=== PATIENT | female | born 1945 | race Caucasian/White ===

== ENCOUNTER 2016-12-12 08:57 | Inpatient (IN) | payer MEDICARE ==
[~2016-12-12] VITALS: Ht 162.6 cm; Wt 101.0 kg
[2016-12-12] VITALS (12 sets, daily range): BP systolic 119–164; BP diastolic 62–94; PULSE 74–92; RESP 13–20; O2SAT 93–96
--- NOTE | 2016-12-12 08:17 | PCM.HPANE ---
Patient Data Surgeon Admitting Provider: Attending Provider:Mehul Lazo DO Primary Care Physician:Abhay Estes DO Other Provider:Serge Alarcon Anesthesia Reason for Visit Left Knee Arthritis LEFT KNEE ARTHRITIS Ht/WT & BMI Height (Feet): 5 Height (Inches): 4 Weight (Kilograms): 99.7 Body Mass Index 37.00 Allergies Coded Allergies: codeine (Verified Allergy, Unknown, hyperactive, 12/02/16) toño (Verified Allergy, Unknown, vomiting, 12/02/16) Past Anesthesia History Anesthesia History: Denies:: Abnormal Airway, Anesthesia Reactions, Difficult Intubation, Fam Anesthesia Reaction (mother possible- tia during surgery) Diabetes History Hx Diabetes?: No MRSA MRSA: Yes (a few years ago,nasal ) Medications Hypertension Medication: No Home Meds Incl Beta Amos: No Reported Medications Cholecalciferol (Vitamin D3) (Vitamin D3)5,000 Unit Tab.rapdis5,000 Unit PO DAILY 12/02/16 Ascorbic Acid (Vitamin C)500 Mg Capsule.er500 Mg PO DAILY 12/02/16 Meclizine (Bonine)25 Mg Tab.chew25 Mg PO DAILY PRN For Nausea 12/02/16 Tramadol 50 Mg Oltnqo70 Mg PO HS PRN For Pain Ref 0 12/02/16 Promethazine 25 Mg Pybaix51.5-25 Mg PO Q6H PRN For Nausea Ref 0 12/02/16 Omeprazole 20 Mg Tablet.dr20 Mg PO DAILY 12/02/16 Naproxen Sodium 220 Mg Sncizru028 Mg PO BID PRN For Pain Ref 0 12/02/16 Misoprostol 100 Mcg Tjqndn267 Mcg PO BID take with diclofenac 12/02/16 Levothyroxine 88 Mcg Wethmt95 Mcg PO BID Ref 0 12/02/16 Diclofenac ER 75 Mg Zwxcqm92 Mg PO BID 12/02/16 Diazepam 5 Mg Tablet5 Mg PO TID PRN For Anxiety Ref 0 12/02/16 Cyclobenzaprine 10 Mg Wzdzqb52 Mg PO BID PRN Spasm 12/02/16 History History of ENT Problems?: No HEENT History: Denies:: Abnormal Airway Cataracts Difficult Intubation Dysphagia (usually has dry mouth, uses mints, gum frequently) Glaucoma Hearing Problem Sinus Problem TMJ Denture Type: None Teeth Condition: Within Normal Limits Hx of Heart Problems?: Yes Cardiovascular History: Denies:: AICD Abdominal Aortic Aneurism Atrial Fibrillation Cardiac Surgery Chest Pain Congestive Heart Failure Coronary Artery Disease Edema Heart Murmur Hypertension Irregular Heartbeat Pacemaker Peripheral Vascular Rheumatic Fever Thrombophlebitis Valvular Heart Disease Hx of Respiratory Problem?: No Respiratory History: Denies:: Asthma COPD Emphysema Oxygen Administration Pneumonia Tuberculosis Use of C-PAP Machine Hx Neurologic Problems?: No Neurological History: Denies:: Alzheimer's Disease Dementia Headaches Multiple Sclerosis Parkinson's Disease Seizures TIA Hx of GI Problems?: Yes Hx of Problems?: No Genitourinary History: Denies:: Kidney Stones Urinary Tract Infection Female Hx: Denies:: Currently (hysterectomy) Problems with Breasts? Skin History: Denies:: History Skin Disorders? Pressure Ulcers Hx Musculoskeletal Problems?: Yes Musculoskeletal History: Positive for:: Back Injury (chronic low back OA) Degenerative Joint Musculoskeletal Trauma (left knee current admission problem) Osteoarthritis (ribs, back, shoulder) Denies:: Fibromyalgia Joint Replacement Myasthenia Gravis Systemic Lupus Hx of Psycho/Social Problems?: No Psycho Social History: Denies:: Anxiety Hx Depression Hx Surgeries?: Yes (hysterectomy) Hx Any Other Health Problems?: Yes Other History: Positive for:: Thyroid Disease Denies:: Cancer History Blood Transfusions: Positive for:: Accept Blood Products? Denies:: Blood Transfusions Hx Diabetes: No Hx Alcohol Use: NoHx Substance Use: NoHave You Smoked inLast 12 mo: No Stop/Bang S-Snoring: Do You Snore Loudly: No T-Tired: feel tired, fatigued: No O-Obsered: Observed not breath: No P-Blood Pressure: treated: No B- Body Mass Index > 35 kg/m2: No A- Age over 50: Yes N- Neck Large Circumference: No G- Gender Male: No REANNA Total Score: 1 Risk Assessment Category Category 1A: Patient has history of documented sleep apnea, and HAS NOT received any narcotic, sedative or anesthesia administration during this stay. Category 1B: Patient has history of documented sleep apnea, and HAS received any narcotic , sedative or anesthesia administration during this stay Category 2: Patient has SUSPECTED Obstructive Sleep Apnea, and HAS received any narcotic , sedative or anesthesia administration during this stay. Category 3: Patient has SUSPECTED Obstructive Sleep Apnea and HAS NOT received narcotic, sedative or anesthesia administration during this stay. Category 4: Outpatient in Procedural Areas with known sleep apnea or who screen positive for High Risk via the STOP/BANG questionnaire. Exam Exam General Appearance: Alert, Oriented X3, Cooperative HEENT/AIRWAY: MP 2 Lungs: Clear to Auscultation Heart: Exam Unremarkable Plan Impression Patient chart reviewed, patient interviewed and anesthestic plan with risks, benefits, and alternatives discussed, and informed consent obtained. ASA Physical Status: ASA2 Mod Systemic Disease Anesthetic Plan: GA Bene/Risks/Altern/Consents: Yes HP Complete Prior to Induction: Yes Priyank Beckford MD Dec 12, 2016 08:17
[~2016-12-12 08:57] MED LIST: ASCO500C6 PO; Bupivacaine Liposome 1.3% 20 mL Inj INFILTRATE SCH; CHOL500062 PO; CYCL10TA9 PO; CeFAZolin Inj 2 GM in IV Premix 1 EACH IV SCH; DIAZ5TAB3 PO; DICL75TA6 PO; LEVO88TA4 PO; Lactated Ringer's 1,000 ML IV ONE; MECL-114 PO; MISO100T42 PO; NAPR220C16 PO; OMEP20TA86 PO; PROM25TA14 PO; TRAM50TA2 PO; Vancomycin Inj 1,500 MG in 0.9% Sodium Chloride 500 ML IV ONE
[2016-12-12] MEDS ORDERED: Vancomycin 1,000mg/200 mL NS IV ONE (09:36)
[2016-12-12] MEDS ORDERED: Lactated Ringer's 1,000 ML IV ONE ×2 (10:00→12:49)
[2016-12-12] MEDS ORDERED: Bupivacaine Liposome 1.3% 20 mL Inj ONE (12:43)
[2016-12-12] MEDS ORDERED: Lactated Ringer's 1,000 ML IV SCH (12:44)
[2016-12-12] MEDS ORDERED: Lactated Ringer's 500 ML IV PRN (12:44)
[2016-12-12] MEDS ORDERED: EPHEDrine Sulfate 50 mg/mL Inj IVPUSH PRN (12:45)
[2016-12-12] MEDS ORDERED: HYDROmorphone 1 mg/mL Inj IVPUSH PRN (12:45)
[2016-12-12] MEDS ORDERED: Ondansetron 2 mg/mL 2 mL Inj IVPUSH PRN (12:45)
[2016-12-12] MEDS ORDERED: Atropine 0.4 mg/mL Inj IVPUSH PRN (12:45)
[2016-12-12] MEDS ORDERED: Labetalol 5 mg/mL 20 mL Inj IV PRN (12:45)
[2016-12-12] MEDS ORDERED: Dexamethasone 4 mg/mL Inj IVPUSH PRN (12:45)
[2016-12-12] MEDS ORDERED: Phenylephrine 10,000 mCg/mL Inj IVPUSH PRN (12:45)
[2016-12-12] MEDS ORDERED: fentaNYL-PF 50 mCg/mL 2 mL Inj IVPUSH PRN (12:45)
[2016-12-12] MEDS ORDERED: Bupivacaine-MPF 0.25% 30 mL Inj INFILTRATE ONE (13:30)
[2016-12-12] MEDS ORDERED: Bupivacaine Liposome 1.3% 20 mL Inj INFILTRATE ONE (13:30)
[2016-12-12] MEDS ORDERED: 0.9% Sodium Chloride 10 mL Inj INFILTRATE ONE (13:30)
[2016-12-12] MEDS ORDERED: diphenhydrAMINE 25 mg Capsule PO PRN (14:45)
[2016-12-12] MEDS ORDERED: Magnesium Hydroxide 10 mL Oral Concentration PO PRN (14:45)
[2016-12-12] MEDS ORDERED: Polyethylene Glycol (PEG) 17 Gm Powder PO PRN (14:45)
--- NOTE | 2016-12-12 16:04 | PCM.ANEP1 ---
Post Anesthesia PACU Phase 1 Assessment Vital Signs Vital Signs Date Time Temp Pulse Resp B/P Pulse Ox O2 Delivery O2 Flow Rate FiO2 12/12/16 15:45 80 17 137/72 94 Room Air 12/12/16 15:30 79 16 129/73 96 Room Air 12/12/16 15:20 36.5 75 15 144/72 95 Room Air 12/12/16 15:17 15 94 12/12/16 15:15 74 14 125/66 94 Room Air 12/12/16 15:10 77 13 121/62 93 Room Air 12/12/16 15:06 36.3 119/63 12/12/16 13:42 78 18 137/69 96 Room Air Anesthetic Administered: MAC, SAB Level of Alertness: Awake, talking PISANO's with Equal Strength: No Pain: No Nausea or Vomiting: No CV Function & Hydration Stable: Yes Airway Device: Oxygen Delivery: Room Air Lungs: Normal Air Movement Dermatome Level: L1,2 (Groin) PACU Phase 2 Assessment Complications: No Follow up Care: No Patient Instructions Provided: N/A Priyank Beckford MD Dec 12, 2016 16:04
[2016-12-12] MEDS ORDERED: fentaNYL-PF 50 mCg/mL 2 mL Inj ONE (16:19)
[2016-12-12] MEDS ORDERED: Ondansetron 2 mg/mL 2 mL Inj ONE (16:19)
[2016-12-12] MEDS ORDERED: Remifentanil 1 mg/3 mL Inj ONE (16:19)
[2016-12-12] MEDS ORDERED: Propofol 10,000 mCg/mL 20 mL Inj ONE (16:19)
[2016-12-12] MEDS ORDERED: Succinylcholine Chloride 20 mg/mL 5 mL Inj ONE (16:19)
--- NOTE | 2016-12-12 16:19 | DRSVH ---
PROCEDURE: X-RAY LEFT KNEE, ONE OR TWO VIEWS ([id number]) INDICATIONS: post op TECHNIQUE: 2 views of the knee acquired. COMPARISON: [facility], CR, XR KNEE ARTHRITIC SERIES LT, 10/06/2016, 10:05. FINDINGS: Bones: Patient is status post knee joint arthroplasty. Visualized bony structures are intact. Soft tissues: Overlying postoperative changes are noted including fluid and gas in the joint space a s well as soft tissue swelling and soft tissue gas. IMPRESSION: 1. Postsurgical changes status post left knee arthroplasty as described. Dictated by: Husam Abel M.D. on 12/12/2016 at 16:11 Approved by: Husam Abel M.D. on 12/12/2016 at 16:16
[2016-12-12] MEDS: Sodium Chloride LOK Flush 10 mL Syringe IV SCH (16:30)
[2016-12-12] MEDS: oxyCODONE-Acetamin 5-325 mg Tablet PO PRN ×3 (16:34→22:46)
[2016-12-12] MEDS: 0.9% Sodium Chloride 1,000 ML IV SCH (16:35)
[2016-12-12] MEDS: HYDROmorphone 1 mg/mL Inj IVPUSH PRN (16:51)
--- NOTE | 2016-12-12 19:32 | NUR ---
Transfer to [facility] Pt. arrived to [facility] at 1610 in stable condition. Vitals stable. Pt. awake and cheerful, AOX3. Denies chest pain, SOB, N/V. RA. Pt. c/o slight pain in knee and increased sensation. 1 percocet administered. pt. soon felt pain spike quickly and 0.5 mg dilaudid administered soon after. Pt. stated this stopped pain increasing any more. After 1 more percocet, pt. states pain was under control. Will continue to monitor. LLE has maintained good pedal pulse, warmth, and cap refill less than 3 seconds.
[2016-12-12] MEDS: Senna-Docusate 8.6-50 mg Tablet PO SCH (22:47)
[2016-12-12] MEDS: CeFAZolin Inj 2 GM in IV Premix 1 EACH IV SCH (22:48)
[2016-12-13] MEDS: 0.9% Sodium Chloride 1,000 ML IV SCH ×3 (00:44→20:44)
[2016-12-13] MEDS: hydrOXYzine Pamoate 25 mg Capsule PO PRN ×3 (01:45→18:18)
--- NOTE | 2016-12-13 01:49 | OP ---
[address] [address] OPERATIVE REPORT PATIENT: MARCIAL ACE : 1945 MR#: [id number] ADMIT: 12/12/2016 JOB ID: [id number] DATE OF SURGERY: 12/12/2016 PREOPERATIVE DIAGNOSIS(ES): Left knee degenerative joint disease. POSTOPERATIVE DIAGNOSIS(ES): Left knee degenerative joint disease. PROCEDURE: Left total knee arthroplasty. SURGEON: Mehul Lazo DO ROAD GANG SUPERVISOR: Blessing Schmid PA-C INDICATIONS: The patient is a 71-year-old female with left knee severe degenerative arthritis who has failed conservative measures and wished to proceed with a left total knee arthroplasty. We discussed risks, benefits, and possible complications of surgery including, but not limited to, injury to nerves and vessels, infection, bleeding, incomplete relief of symptoms, stiffness, need for additional procedures. The patient had good understanding. All questions were answered. She wished to proceed. medical assistant ob gyn was required for the successful completion of this procedure. PROCEDURE IN DETAIL: The patient is brought to the operating room. She was given a preoperative antibiotic and spinal anesthetic. The left lower extremity was sterilely prepped and draped. A tourniquet was used for hemostasis. An incision was made longitudinally over the anterior medial knee. Dissection was carefully carried through the subcutaneous tissue. Electrocautery was used for hemostasis as well. A split was made in the quad tendon, leaving a cuff of tissue for repair. This was taken along the medial retinaculum onto the proximal medial tibial face. A small portion of the fat pad and anterior horn medial and lateral meniscus were removed. The patella was everted and a small subperiosteal medial release was performed. The femur was then instrumented with the intramedullary drill and then the intramedullary guide shannon, and a 10 mm distal resection was planned with a 5 degree distal valgus cut angle. The cut was performed and the tibia was addressed using an extramedullary tibial cutting guide. The cutting guide was pinned into position. The cut was performed, completed with an osteotome, and then the tibial cut surface was removed. The medial and lateral menisci were removed and the femur was sized, felt to be a size 6, and 3 degrees of external rotation were placed. The four-in-one cutting blocks were placed and the box cut was performed, completed with an osteotome. The patella was then everted and resurfaced, cut from an initial thickness of 22 to a thickness of 14. A 35 mm patellar button was chosen, drilled for and trialed and had excellent tracking. The femur was drilled. The tibia was drilled and punched. The knee was washed and dried, and the components were then cemented into position beginning with the DePuy Attune fixed bearing, 5 tibia, followed by the DePuy Attune posterior stabilized 6 narrow femur and the 35 mm patellar button with an 8 thickness, size 6 polyethylene insert. The excess cement was removed. Once the cement had been allowed to polymerize, the tourniquet was let down. Electrocautery was used for hemostasis. The wound was then irrigated and closed with #1 Ethibond and 0 Vicryl to repair the quad tendon and medial retinaculum. The subcu was closed with a running 2-0 V-Loc suture. The skin was closed with a running subcuticular Stratafix suture. Mixture of Exparel, Marcaine and saline was added as an adjunct local anesthetic. Sterile dressings were applied. The patient tolerated the procedure well. BLOOD LOSS: 50 cc. POSTOPERATIVE PROTOCOL: Have the patient weightbear to tolerance. Use a walker or cane for ambulation. Plan for Percocet for postop pain. We discussed DVT prophylaxis, and she would prefer to do aspirin for DVT prophylaxis rather than Lovenox, which I think is reasonable. [facility]
[2016-12-13] MEDS: Sodium Chloride LOK Flush 10 mL Syringe IV SCH ×3 (01:52→18:18)
[2016-12-13] MEDS: oxyCODONE-Acetamin 5-325 mg Tablet PO PRN ×5 (03:02→22:36)
[2016-12-13 05:33] LABS: BASOPHILS % (AUTO) 0.1 % (0-3); EOSINOPHILS % (AUTO) 0 % (0-5); MONOCYTES % (AUTO) 6.5 % (4-12); Mean Corpuscular Hemoglobin 30.9 pg (27.0-35.0); Mean Corpuscular Volume 92.6 fL (81-100); NEUTROPHILS % (AUTO) 77.3 % (40-74); Platelet Count 219 bil/L (150-400)
[2016-12-13] MEDS: HYDROmorphone 1 mg/mL Inj IVPUSH PRN ×2 (05:42→11:00)
[2016-12-13 06:07] VITALS: BP 150/85; PULSE 90; RESP 20; O2SAT 94
--- NOTE | 2016-12-13 06:08 | NUR ---
Activity/Output/Pain Patient is alert and oriented. Pain managed with PO Percocet, and IV Dilaudid for breakthrough pain. Ice pack and repositioning also for pain management. Patient tolerating diet and fluids well. Patient used the bedpan several times during the night. Voiding without difficulty. Patient reports sensation returning to LLE, with some lingering numbness below the knee. Able to wiggle feet and toes. Feet are warm, cap refill less than 3 sec, with good pedal pulses. Bed down, rails up, call light in reach. Care continues.
[2016-12-13] MEDS: Pantoprazole 20 mg ER24 Tablet PO SCH (06:46)
[2016-12-13] MEDS: CeFAZolin Inj 2 GM in IV Premix 1 EACH IV SCH (06:46)
[2016-12-13] MEDS ORDERED: Influenza (Adult) Vaccine 0.5 mL Syringe IM ONE ×2 (08:00→12:15)
--- NOTE | 2016-12-13 08:23 | PCM.PNORTH ---
Subjective Date of Service: Dec 13, 2016 Visit Information: Reason for Visit Left Knee Arthritis Surgery/Surgery Date L TKA 12/12/16 Post-Op Day # 1 Date of Admission: Dec 12, 2016 at 16:18 Hospital Day # Subjective Patient states she is tolerating the pain however her knee is uncomfortable when she moves her leg or her foot. She states it is also uncomfortable if I move her leg. Postop General: No Complaints, No Shortness of Breath, No Chest Pain, Good Appetite Pain Management: PO, IV Push Objective Exam Objective Patient laying in bed Vital Signs and I/O Vital Sign - Last Date Time Temp Pulse Resp B/P Pulse Ox O2 Delivery O2 Flow Rate FiO2 12/13/16 06:07 36.6 90 20 150/85 94 Room Air Intake and Output 12/12/16 12/12/16 12/13/16 Cumulative From/Thru 15:00 23:00 07:00 12/02/16 16:14 - 12/13/16 06:07 Intake Total 1070 ml 1262 ml 850 ml 3182 ml Output Total 50 ml 0 ml 1650 ml 1700 ml Balance 1020 ml 1262 ml -800 ml 1482 ml Intake Oral 700 ml 850 ml 1550 ml IV Total 1070 ml 562 ml 1632 ml Output Urine Total 0 ml 1650 ml 1650 ml Estimated Blood Loss 50 ml 50 ml # Voids 5 5 # Bowel Movements 0 0 Lab & Micro Results Laboratory Tests Test 12/13/16 05:00 White Blood Count 12.5th/mm3 (3.8-10.1) Red Blood Count 3.92mil/mm3 (3.90-5.20) Hemoglobin 12.1g/dL (12.0-15.6) Hematocrit 36.3% (35.0-46.0) Mean Corpuscular Volume 92.6fL (81-100) Mean Corpuscular Hemoglobin 30.9pg (27.0-35.0) Mean Corpuscular Hemoglobin Concent 33.3% (32.0-37.0) Red Cell Distribution Width 13.0% (12.3-15.4) Platelet Count 219bil/L (150-400) Neutrophils (%) (Auto) 77.3% (40-74) Lymphocytes (%) (Auto) 15.9% (14-46) Monocytes (%) (Auto) 6.5% (4-12) Eosinophils (%) (Auto) 0% (0-5) Basophils (%) (Auto) 0.1% (0-3) Sodium Level 138mEq/L (134-144) Potassium Level 4.5mEq/L (3.5-5.2) Chloride Level 104mEq/L (97-108) Carbon Dioxide Level 22mmol/L (18-29) Blood Urea Nitrogen 13mg/dL (8-27) Creatinine 0.85mg/dL (0.57-1.00) Estimat Glomerular Filtration Rate 95mL/min (>59) Glucose Level 147mg/dL (60-99) Calcium Level 8.6mg/dL (8.5-10.1) Result Diagram: 12/13/16 0500 12/13/16 0500 General Appearance: Alert, Oriented X3, Cooperative, No Acute Distress Extremities: Distal Pulses Palpable, No Compartment Syndrom Noted, Thigh & Calf Soft/Nontender (Calf mildy tender, but states "it hurts in my knee not calf ") Postop Sensory Motor: Distal Motor Intact, Movement in Toes, Distal Sensation Intact, NVI Distally SURGICAL WOUND : Wound Location/Description Perioperative dressings c/d/i Activity: Ambulate with PT (WBAT c FWW) Assessment & Plan Impression Postop day #1 left total knee arthroplasty Problems: Plan Weightbearing: Weightbearing as tolerated with wheeled walker DVT prophylaxis: Aspirin 325 mg twice a day 6 weeks. Wound care: Preoperative dressing will be changed to island dressing by PA Shower instructions: If incision is dry, absent drainage, patient may shower with incision uncovered beginning tomorrow. Analgesia: Prefer oral pain management. Discharge plan: Discharge home in 1-2 days. Will begin outpatient physical therapy within one week. Follow-up plan: In 2 weeks at [facility] with MANI for wound check and at [address] Lazo with x-rays Mary Grace Lam PA-C Dec 13, 2016 08:23
[2016-12-13] MEDS: Senna-Docusate 8.6-50 mg Tablet PO SCH ×2 (08:43→21:11)
--- NOTE | 2016-12-13 10:15 | NUR ---
Evaluation completed. Please go to "Notes" then click on "Assessments and Notes" (bottom left corner of screen). Then select appropriate discipline tab on top of screen.
[2016-12-13 10:21] VITALS: BP 143/82; PULSE 75; RESP 18; O2SAT 96
[2016-12-13 14:29] VITALS: BP 144/81; PULSE 74; RESP 19; O2SAT 95
--- NOTE | 2016-12-13 16:59 | NUR ---
Social Work: Initial Assessment/Readiness for D/C/Multidisciplinary Rounds D: EMR reviewed. Please see Initial Assessment linked to this note for more information. Pt is a 71 year old female admitted [place] with a readmit risk score of 3 for elective left TKA per H&P. Pt's insurance is [employer]. PCP is Abhay Estes MD. Pt discussed in multidisciplinary rounds, pt is POD 1. Pt is likely to discharge home, no needs. PT has cleared pt for home. SW met with pt at bedside to conduct initial assessment. Pt was alert and oriented x3. SW explained role and wrote phone number on white board. SW provided [facility] Discharge Planning Checklist and encouraged pt to contact SW for any discharge planning questions. Pt lives at home with her daughter Felipa and granddaughter Vanesa in [place]. Pt is independent with all ADLs at baseline. Pt uses no DME at baseline, but has a cane and walker available for use at discharge. Pt drives. Pt has no HH or SNF history. Pt has no LTC or VA benefits. Pt has no DPOA on file, information provided at registration. Pt is likely to d/c home with daughter to transport via POV. SW will continue to follow. A: Pt who is independent at baseline and has the capacity for self-care. P: Pt anticipated to discharge home with daughter to transport via POV. No SW needs identified, no MD orders received at this time. PT has cleared pt for home with outpt PT. SW will continue to follow for needs until time of discharge. LOULOU Woody Addendum: 12/13/16 at 1659 by SHRUTI GUSTAFSON Amended: Links added.
--- NOTE | 2016-12-13 18:42 | NUR ---
Pain/Activity- Patient complained of 7/10 left knee incision pain. IV Dilaudid 0.5mg given x 1 for breakthrough pain when oral pain meds not effective. Patient has also complained of nausea and feeling dizzy when getting up earlier today, but symptoms have resolved. Up with PT and standby assist to bathroom and chair. Tolerated activity well.
[2016-12-13 20:40] VITALS: BP 125/67; PULSE 89; RESP 18; O2SAT 93
[2016-12-14] MEDS: Sodium Chloride LOK Flush 10 mL Syringe IV SCH ×2 (00:30→08:34)
[2016-12-14] MEDS: oxyCODONE-Acetamin 5-325 mg Tablet PO PRN ×3 (04:50→08:33)
[2016-12-14 05:35] VITALS: BP 109/65; PULSE 72; RESP 16; O2SAT 94
--- NOTE | 2016-12-14 05:44 | NUR ---
Pain/Activity Pain managed with PO Percocet. No IV Dilaudid needed. Patient ambulates from bed to restroom using front-wheeled walker. Standby assist. No complaints of nausea/vomiting. Patient denies numbness/tingling in LLE. Able to wiggle toes and feet. Cap refill less than 3 sec, with good pedal pulses. Bed down, rails up, call light in reach. Care continues.
[2016-12-14 06:10] LABS: BASOPHILS % (AUTO) 0.3 % (0-3); EOSINOPHILS % (AUTO) 0.9 % (0-5); MONOCYTES % (AUTO) 9.3 % (4-12); Mean Corpuscular Hemoglobin 31.2 pg (27.0-35.0); Mean Corpuscular Volume 94.4 fL (81-100); NEUTROPHILS % (AUTO) 50.2 % (40-74); Platelet Count 197 bil/L (150-400)
[2016-12-14] MEDS: Pantoprazole 20 mg ER24 Tablet PO SCH (06:43)
[2016-12-14] MEDS: 0.9% Sodium Chloride 1,000 ML IV SCH (06:44)
[2016-12-14 08:18] VITALS: BP 125/61; PULSE 84; RESP 16; O2SAT 98
[2016-12-14] MEDS: Senna-Docusate 8.6-50 mg Tablet PO SCH (08:31)
--- NOTE | 2016-12-14 10:38 | PCM.PNORTH ---
Subjective Date of Service: Dec 14, 2016 Visit Information: Reason for Visit Left Knee Arthritis Surgery/Surgery Date L TKA 12/12/16 Post-Op Day # 2 Date of Admission: Dec 12, 2016 at 16:18 Hospital Day # Subjective Patient is making excellent progress. She is able to do a straight leg raise and can flex the knee to 80. She walked 100 feet and has done stairs. She has outpatient physical therapy scheduled to start on 12/19/16 Postop General: No Complaints, No Shortness of Breath, No Chest Pain, Good Appetite Pain Management: PO, IV Push Objective Exam Objective Patient is seen sitting up in bed Vital Signs and I/O Vital Sign - Last Date Time Temp Pulse Resp B/P Pulse Ox O2 Delivery O2 Flow Rate FiO2 12/14/16 09:17 Room Air 12/14/16 08:18 36.6 84 16 125/61 98 Intake and Output 12/13/16 12/13/16 12/14/16 Cumulative From/Thru 15:00 23:00 07:00 12/02/16 16:14 - 12/14/16 01:38 Intake Total 1000 ml 4182 ml Output Total 1000 ml 2700 ml Balance 0 ml 1482 ml Intake Oral 1000 ml 2550 ml IV Total 1632 ml Output Urine Total 1000 ml 2650 ml Estimated Blood Loss 50 ml # Voids 5 # Bowel Movements 0 0 Lab & Micro Results Laboratory Tests Test 12/14/16 05:15 White Blood Count 9.1th/mm3 (3.8-10.1) Red Blood Count 3.56mil/mm3 (3.90-5.20) Hemoglobin 11.1g/dL (12.0-15.6) Hematocrit 33.6% (35.0-46.0) Mean Corpuscular Volume 94.4fL (81-100) Mean Corpuscular Hemoglobin 31.2pg (27.0-35.0) Mean Corpuscular Hemoglobin Concent 33.0% (32.0-37.0) Red Cell Distribution Width 13.6% (12.3-15.4) Platelet Count 197bil/L (150-400) Neutrophils (%) (Auto) 50.2% (40-74) Lymphocytes (%) (Auto) 39.1% (14-46) Monocytes (%) (Auto) 9.3% (4-12) Eosinophils (%) (Auto) 0.9% (0-5) Basophils (%) (Auto) 0.3% (0-3) Sodium Level 139mEq/L (134-144) Potassium Level 4.1mEq/L (3.5-5.2) Chloride Level 104mEq/L (97-108) Carbon Dioxide Level 25mmol/L (18-29) Blood Urea Nitrogen 17mg/dL (8-27) Creatinine 0.97mg/dL (0.57-1.00) Estimat Glomerular Filtration Rate 82mL/min (>59) Glucose Level 98mg/dL (60-99) Calcium Level 8.6mg/dL (8.5-10.1) Result Diagram: 12/14/1651412/14/16514 General Appearance: Alert, Oriented X3, Cooperative, No Acute Distress Extremities: Distal Pulses Palpable, No Compartment Syndrom Noted, Thigh & Calf Soft/Nontender Postop Sensory Motor: Distal Motor Intact, Distal Sensation Intact, NVI Distally SURGICAL WOUND : Wound Location/Description Left knee: Surgical dressing is removed. The wound is well approximated and Steri-Strips are in place. There is no ecchymosis, erythema or drainage present. The wound is cleansed with hydrogen peroxide. Wound is dressed with Silverlon, ABD pad and an Frantz wrap. Activity: Ambulate with PT (WBAT c FWW) Catheters: None Assessment & Plan Impression POD #2 status post left total knee arthroplasty Problems: Plan Weightbearing: Weightbearing as tolerated with wheeled walker DVT prophylaxis: aspirin 325 mg twice a day 6 weeks Physical therapy for transfers, progressive ambulation, therapeutic exercise Wound care: Dressing is changed today by PA Discharge plan: Discharge home today. Start outpatient physical therapy as scheduled Discharge instructions are reviewed with the patient Follow-up plan: In 2 weeks at [facility] with PA for wound check and at [address] Lazo with x-rays Pain Management: Percocet, Dilaudid, Vistaril, Flexeril VTE Prophylaxis: SCDs, Other (aspirin) Resuscitation Status: CPR: Attempt Resuscitation [place] VerdeBlessing Garcia PA-C Dec 14, 2016 10:38
--- NOTE | 2016-12-14 10:41 | PCM.DIORTH ---
Ortho Discharge Instruction Date of Service: Dec 14, 2016 Dates of Hospitalization Date of Hospital Admission Dec 12, 2016 at 16:18 Providers Admitting Physician: Mehul Lazo DO Primary Care Physician: Abhay Estes DO Attending Physician: Mehul Lazo DO Diet Discharge Diet: No restrictions Activity Discharge Activity-General: Try not to overdue, Be up and about, Balance rest and activity, Elevate & ice extremity Left Lower Extremity: Weight Bearing as tolerated Discharge Assist Device: Front Wheeled Walker Dressing and Incisional Care Discharge Dressing Care: Keep dressing clean, dry & intact Discharge Hygiene: May shower (see instructions below) Additional Instructions Discharge Instructions Discharge Activity-General: Try not to overdue, Be up and about, Balance rest and activity, Elevate & ice extremity Left Lower Extremity: Weight Bearing as tolerated Discharge Assist Device: Front Wheeled Walker Discharge Dressing Care: Keep dressing clean, dry & intact Discharge Hygiene: May shower (see instructions below) Weightbearing as tolerated with walker Every hour of the day that you awake, get up and move - either do exercises, bending and straightening or walking Start outpatient physical therapy as scheduled. Plan for PT 2-3 times per week for 4 weeks to start Ice and elevate the leg 6-10 times a day Wear the compression stockings for 4 weeks on the left leg and for 2 weeks on the right leg Increase your walking a little more each week On Monday, you may shower if the wound has no drainage present. Wound may be uncovered to shower. Let soap and water run over the wound, pat dry and apply a new dressing. Re-use the Silver dressing and big pad for 1 week. Get the silver pad wet with the saline in the syringe, handle it only be the corners. Reapply with silver side towards the skin, cover with the big square pad. The compressions stockings will hold it in place. Follow Up Plan Follow Up Plan Follow-up at [facility] in 2 weeks with MANI for wound check and at [address] Lazo with x-ray Call your provider for: Fever, Chills, Shortness of breath, Vomitting, Drainage at incision (that is increasing), Wound redness (that is spreading), Increasing pain (for no reason) Blessing Schmid PA-C Dec 14, 2016 10:41
--- NOTE | 2016-12-14 10:41 | PCM.DC.ORT ---
Discharge Summary Date of Service: Dec 14, 2016 Date of Hospital Admission: Dec 12, 2016 at 16:18 Date of Surgery: Dec 12, 2016 Date of Discharge: Dec 14, 2016 Reason for Hospitalization: Left knee arthritis Procedures Performed: Left total knee arthroplasty Hospital Course: The patient was admitted to the hospital on 12/12/2016 and underwent the above procedure. Antibiotic prophylaxis consisting of Ancef and vancomycin. The surgeon was Dr. Lazo. Patient tolerated the procedure well and was transferred to recovery room in stable condition. Patient had physical therapy to work on ambulation and transfers. Weightbearing as tolerated with walker. Pain was managed with Dilaudid, Percocet, Vistaril, Toradol. DVT prophylaxis: Aspirin 325 mg twice a day, SCDs and LION hose Patient progressed well with physical therapy and on POD-2 was discharged home. Follow-up: at [facility], [place] 2 weeks postop for wound check and at [address] Lazo with x-ray Diagnosis at Time of Discharge Status post left total knee arthroplasty Problems: Disposition: Discharged home in stable condition Additional Information Follow-up at [facility], [place] in 2 weeks with PA for wound check and at [address] Lazo with x-ray Discharge Instructions: Activity-General: Try not to overdue, Be up and about, Balance rest and activity, Elevate & ice extremity Left Lower Extremity: Weight Bearing as tolerated Discharge Assist Device: Front Wheeled Walker Discharge Dressing Care: Keep dressing clean, dry & intact Discharge Hygiene: May shower (see instructions below) Discharge Activity-General: Try not to overdue, Be up and about, Balance rest and activity, Elevate & ice extremity Left Lower Extremity: Weight Bearing as tolerated Discharge Assist Device: Front Wheeled Walker Discharge Dressing Care: Keep dressing clean, dry & intact Discharge Hygiene: May shower (see instructions below) Weightbearing as tolerated with walker Every hour of the day that you awake, get up and move - either do exercises, bending and straightening or walking Start outpatient physical therapy as scheduled. Plan for PT 2-3 times per week for 4 weeks to start Ice and elevate the leg 6-10 times a day Wear the compression stockings for 4 weeks on the left leg and for 2 weeks on the right leg Increase your walking a little more each week On Monday, you may shower if the wound has no drainage present. Wound may be uncovered to shower. Let soap and water run over the wound, pat dry and apply a new dressing. Re-use the Silver dressing and big pad for 1 week. Get the silver pad wet with the saline in the syringe, handle it only be the corners. Reapply with silver side towards the skin, cover with the big square pad. The compressions stockings will hold it in place. Ascorbic Acid (Vitamin C) 500 Mg Capsule.er 500 MG PO DAILY Cholecalciferol (Vitamin D3) (Vitamin D3) 5,000 Unit Tab.rapdis 5,000 UNIT PO DAILY Cyclobenzaprine (Cyclobenzaprine) 10 Mg Tablet 10 MG PO BID PRN PRN Spasm Diazepam (Diazepam) 5 Mg Tablet 5 MG PO TID PRN PRN For Anxiety Diclofenac ER (Diclofenac ER) 75 Mg Tablet 75 MG PO BID Hydroxyzine Pamoate (HydrOXYzine Pamoate) 25 Mg Capsule 25 MG PO Q6H PRN PRN For Spasm and/or Restlessness Levothyroxine (Levothyroxine) 88 Mcg Tablet 88 MCG PO BID Meclizine (Bonine) 25 Mg Tab.chew 25 MG PO DAILY PRN PRN For Nausea Misoprostol (Misoprostol) 100 Mcg Tablet 100 MCG PO BID take with diclofenac Omeprazole (Omeprazole) 20 Mg Tablet.dr 20 MG PO DAILY Promethazine (Promethazine) 25 Mg Tablet 12.5-25 MG PO Q6H PRN PRN For Nausea Tramadol (Tramadol) 50 Mg Tablet 50 MG PO HS PRN PRN For Pain oxyCODONE (oxyCODONE) 5 Mg Tablet 5-10 MG PO Q4H PRN PRN For Severe Pain Blessing Schmid PA-C Dec 14, 2016 10:41
[2016-12-14] MEDS ORDERED: HYDR-3797 PO (10:43)
[2016-12-14] MEDS ORDERED: OXYC-530 PO (10:43)
--- NOTE | 2016-12-14 11:26 | NUR ---
Social Work: Discharge/Multidisciplinary Rounds D: EMR reviewed. Pt is on day 2 of hospitalization. Pt discussed in multidisciplinary rounds, pt to discharge today. PT has cleared pt for home. Discharge orders are active. Pt lives at home with her daughter Felipa and granddaughter Vanesa in [place]. Pt is independent with all ADLs at baseline. Pt is to d/c home with daughter to transport via POV. No discharge needs. A: Pt who is independent at baseline and has the capacity for self-care. P: Pt to discharge home with daughter to transport via POV. No SW needs identified, no MD orders received at this time. PT has cleared pt for home with outpt PT. Perla Mann MEDICAL EQUIPMENT TECHNICIAN
--- NOTE | 2016-12-14 14:41 | NUR ---
Discharge Pt. discharged to home with belongings via POV with daughter. Alert and oriented x 4, vitals stable, agreeable with discharge. Discharge packet with discharge, follow-up, medication instructions and hard copies of prescriptions explained to and sent with pt. Pt. left unit via wheelchair with member of [facility] staff.
== END 2016-12-14 14:30 | disposition home or self-care (01) | DRG 470 ==
LOC: SAS 08:57 → OSC 16:18
PROVIDERS: ADMIT Orthopaedic Surgery; ATTEND Orthopaedic Surgery
PROC: 0SRD0J9 Replacement of Left Knee Joint with Synthetic Substitute, Cemented, Open Approach (ICD-10-PCS; principal; 2016-12-12 11:15)
DX: M17.12 Unilateral primary osteoarthritis, left knee (principal)